=== PATIENT | male | born 1980 | race Caucasian/White ===

== ENCOUNTER 2017-07-08 11:35 | Emergency (ER) | payer MEDICAID ==
[2017-07-08 11:36] VITALS: BMI 25.0
[2017-07-08 11:52] VITALS: RESP 18; O2SAT 100
[2017-07-08] MEDS ORDERED: Sodium Chloride 0.9% 1,000 ML IV ONE (12:12)
--- NOTE | 2017-07-08 12:40 | C.PDOC ---
History Of Present Illness 36 year old male with PMHx of chronic lower back pain, under pain management now , BIBA for evaluation if syncopal episode, while he was in court early today. Pt reports, was standing for some time, felt dizzy and fell on the floor. Patient admits to spent the night prior in [facility] . Patient reports, currently taking oxycodone 30 mg daily for pain and is requesting pain medications now, last dose was yesterday. Otherwise, Patient denies head injury, denies worse headache of life, visual changes, focal deficits, N/V, neck pain, CP, SOB, dyspnea, diaphoresis, palpitations, abdominal pain, back pain, incontinence, denies weakness, sensory or vascular deficits to B/L UEs and LEs. At time of evaluation patient is AOX3, ambulatory in ED with stable gait. Time Seen by Provider: 07/08/17 11:47 Chief Complaint (Nursing): Syncope History Per: Patient, EMS History/Exam Limitations: no limitations Onset/Duration Of Symptoms: Hrs Current Symptoms Are (Timing): Gone Number Of Syncopal Episodes: 1 Activity At Onset Of Symptoms: Standing Associated Symptoms Preceding Syncopal Episode: Other (Dizziness) Seizure Or Post-ictal Symptoms: None Possible Causative Factor(s): Lightheaded W/Standing Recent travel outside of the [place]: No Additional History Per: Patient, EMS Past Medical History Reviewed: Historical Data, Nursing Documentation, Vital Signs Vital Signs: Last Vital Signs Temp 97.3 F L 07/08/17 14:16 Pulse 86 07/08/17 14:16 Resp 18 07/08/17 14:16 BP 163/95 H 07/08/17 14:16 Pulse Ox 100 07/08/17 14:41 - Medical History PMH: Asthma, Back Problems Denies: Chronic Kidney Disease Surgical History: Back Surgery Family History: States: Unknown Family Hx - Social History Hx Tobacco Use: No Hx Alcohol Use: No Hx Substance Use: Yes (marijuana) - Immunization History Hx Tetanus Toxoid Vaccination: No Hx Influenza Vaccination: No Hx Pneumococcal Vaccination: No Review Of Systems Constitutional: Negative for: Fever, Chills Eyes: Negative for: Vision Change Cardiovascular: Negative for: Chest Pain, Palpitations Respiratory: Negative for: Cough, Shortness of Breath Gastrointestinal: Negative for: Nausea, Vomiting, Abdominal Pain Genitourinary: Negative for: Incontinence Musculoskeletal: Negative for: Neck Pain, Back Pain Skin: Negative for: Rash Neurological: Positive for: Dizziness. Negative for: Weakness, Numbness, Headache Physical Exam - Physical Exam Appears: Well, Non-toxic, No Acute Distress Skin: Normal Color, Warm, Dry, No Rash Head: Atraumatic, Normacephalic, No Tenderness, No Swelling Eye(s): bilateral: PERRL Ear(s): Bilateral: Normal Nose: No Flaring, No Discharge, No Deformity Oral Mucosa: Moist, No Drooling Throat: No Erythema, No Exudate, No Drooling Neck: Normal ROM, Trachea Midline, No Midline Cervical Tenderness, No Paracervical Tenderness, No Step Off Deformity, Supple Cardiovascular: Rhythm Regular, No Murmur Respiratory: No Decreased Breath Sounds, No Accessory Muscle Use, No Rales, No Rhonchi, No Stridor, No Wheezing Gastrointestinal/Abdominal: Soft, No Tenderness, No Organomegaly, No Guarding, No Rebound Back: No Vertebral Tenderness Extremity: Normal ROM, No Deformity, No Swelling Neurological/Psych: Oriented x3, Normal Speech, Normal Cognition, Normal Motor, Normal Sensation, Normal Reflexes Gait: Steady ED Course And Treatment - Laboratory Results Result Diagrams: 07/08/17 12:34 07/08/17 12:34 ECG: Interpreted By Me, Viewed By Wv ECG Rhythm: Sinus Rhythm ECG Interpretation: Normal, No Acute Changes Interpretation Of ECG: NSR at 79 BPM, normal axis, no acute T or ST changes. Rate From EC O2 Sat by Pulse Oximetry: 100 (On RA) Pulse Ox Interpretation: Normal - Radiology CXR: Interpreted by Me, Viewed By Me CXR Interpretation: Yes: No Acute Disease. No: Infiltrates Progress Note: Plan: -EKG, CXR ordered. -Blood work, UA ordered. -IV fluids given. On re-eval, pt is afebrile, hemodynamicaly stable. Ambulatory in ED with stable gait. Pt request pain medication and discharge now. Pt denies CP, SOB, palpitation. PulseOx 100% RA. ENT: no acute findings. Neck: Supple, (-) midline tenderness, (-) JVD, (-) carotid bruits. CVS: (+)S1S2, reg. Lungs: CTA B /L, BS equal B/L. Abd: benign. Neurologicaly intact. EKG, CXR review and appears normal. Urine sample- pt refused. Blood work review including Troponin - appears normal. Pt has clinical findings c/w syncope?. Pt advised on course of ds. ref. to F/u with PMD, card in 2-3 days for re-eval. return to ED if any worsening or new changes. Disposition Counseled Patient/Family Regarding: Diagnosis - Disposition Referrals: [facility] [Outside] Disposition: HOME/ ROUTINE Disposition Time: 14:00 Condition: STABLE Additional Instructions: FOLLOW UP WITH PMD AND CARDIOLOGY IN 2-3 DAYS FOR RE-EVALUATION AND FURTHER TREATMENT RETURN IF ANY WORSENING OR NEW CHANGES. Instructions: Syncope (ED) Forms: [employer] (Belarusian) - Clinical Impression Clinical Impression: Syncope - PA / CATTLE TESTER / Resident Statement MD/DO has reviewed & agrees with the documentation as recorded. - Scribe Statement The provider has reviewed the documentation as recorded by the Scribe Ebenezer Carias All medical record entries made by the Scribe were at my direction and personally dictated by me. I have reviewed the chart and agree that the record accurately reflects my personal performance of the history, physical exam, medical decision making, and the department course for this patient. I have also personally directed, reviewed, and agree with the discharge instructions and disposition.
[2017-07-08 12:43] LABS: BASO % 0.4 % (0.0-2.0); EOS % 0.2 % (0.0-4.0); HEMATOCRIT 50.5 % (35.0-51.0); LYMPH # 1.4 K/uL (1.0-4.3); LYMPH % 17.2 % (20.0-40.0); MEAN CORPUSCULAR HEMOGLOBIN 30.4 pg (27.0-31.0); MEAN CORPUSCULAR HGB CONC 33.8 g/dL (33.0-37.0); MEAN PLATELET VOLUME 9.2 fL (7.2-11.7); MONO # 0.6 K/uL (0.0-0.8); MONO % 7.2 % (0.0-10.0); NRBC % 0.2 % (0.0-2.0); RED CELL DISTRIBUTION WIDTH 12.7 % (11.5-14.5); WHITE BLOOD COUNT 8.4 K/uL (4.8-10.8)
[2017-07-08 13:02] LABS: ALB/GLOB RATIO 1.6 (1.0-2.1); ALCOHOL SERUM < 10 mg/dl (0-10); ALKALINE PHOSPHATASE 70 U/L (38-126); ALT/SGPT 56 U/L (21-72); AST/SGOT 34 U/L (17-59); BILIRUBIN,TOTAL 1.2 mg/dL (0.2-1.3); BLOOD UREA NITROGEN 14 mg/dL (9-20); CALCIUM 8.8 mg/dl (8.6-10.4); CARBON DIOXIDE 23 mmol/L (22-30); CHLORIDE 101 mmol/L (98-107); GFR AFRICAN-AMERICAN > 60; GLUCOSE,RANDOM 73 mg/dL (75-110); POTASSIUM 3.8 mmol/L (3.6-5.2); SODIUM 136 mmol/L (132-148); TOTAL PROTEIN 7.6 g/dL (6.3-8.3)
--- NOTE | 2017-07-08 13:57 | RAD ---
HISTORY: AMS COMPARISON: Comparison chest dated 09/17/2016. TECHNIQUE: Chest PA and lateral FINDINGS: LUNGS: No active pulmonary disease. PLEURA: No significant pleural effusion identified. No pneumothorax apparent. CARDIOVASCULAR: Normal. OSSEOUS STRUCTURES: No significant abnormalities. VISUALIZED UPPER ABDOMEN: Normal. OTHER FINDINGS: None. IMPRESSION: No acute infiltrates.
[2017-07-08 14:17] VITALS: BP 163/95; PULSE 86; TEMP 97.3
== END 2017-07-08 14:36 | disposition home or self-care (01) ==
LOC: C.ER 11:35
DX: R55 Syncope and collapse (principal)
CPT/HCPCS: 71020; 80053; 80320; 82948; 84484; 85025; 85610; 85730; 96360; 99285; J7040

== ENCOUNTER 2018-01-10 06:56 | Emergency (ER) | payer SELFPAY ==
[2018-01-10 06:56] VITALS: BMI 21.5
[2018-01-10 07:04] VITALS: RESP 18; TEMP 98.3
--- NOTE | 2018-01-10 07:32 | C.PDOC ---
History Of Present Illness 37-year-old male, presents to the emergency department with complaints of chronic low back pain. Patient states he was recently released from correction, with an ankle monitor. States he has been experiencing pain in his back, since he had surgery couple of years ago, he was taking Oxycodone and Percocet, but siche he got out of correction he has no pain medications and didn't see interventional pain physician yet. He denies any numbness/weakness, changes in sensation , bowel/bladder incontinence, or any other associated symptoms. No other complaints at this time. Time Seen by Provider: 01/10/18 07:16 Chief Complaint (Nursing): Back Pain History Per: Patient History/Exam Limitations: no limitations Current Symptoms Are (Timing): Still Present Past Medical History Reviewed: Historical Data, Nursing Documentation, Vital Signs Vital Signs: Last Vital Signs Temp 98.3 F 01/10/18 07:01 Pulse 75 01/10/18 08:17 Resp 18 01/10/18 08:17 BP 121/74 01/10/18 08:17 Pulse Ox 97 01/10/18 12:26 - Medical History PMH: Asthma, Back Problems (chronic ) Surgical History: Back Surgery Family History: States: No Known Family Hx - Social History Hx Tobacco Use: No Hx Alcohol Use: No Hx Substance Use: Yes (marijuana) - Immunization History Hx Tetanus Toxoid Vaccination: No Hx Influenza Vaccination: No Hx Pneumococcal Vaccination: No Review Of Systems Constitutional: Negative for: Fever, Chills Respiratory: Negative for: Shortness of Breath Gastrointestinal: Negative for: Nausea, Vomiting Musculoskeletal: Positive for: Back Pain Neurological: Negative for: Weakness, Numbness Physical Exam - Physical Exam Appears: Non-toxic, No Acute Distress Skin: Normal Color, Warm, Dry, No Rash Head: Normacephalic Eye(s): bilateral: Normal Inspection Nose: Normal Oral Mucosa: Moist Lips: Normal Appearing Neck: Normal ROM Cardiovascular: Rhythm Regular, No Murmur Respiratory: Normal Breath Sounds, No Accessory Muscle Use Back: Paraspinal Tenderness (diffuse, (+)post-op surgical scar, well healing.) Extremity: Normal ROM, No Deformity, No Swelling Neurological/Psych: Oriented x3, Normal Speech ED Course And Treatment O2 Sat by Pulse Oximetry: 97 (RA) Pulse Ox Interpretation: Normal Medical Decision Making Medical Decision Making: Plan: * Percocet * Reassess and Disposition Progress: Upon re-evaluation, patient is feeling better and pain has improved. He will be discharged for outpatient f/u with PMD and measurement specialist. All questions answered. Upon discharge, patient is requesting a letter to court, that says he is unable to appear in court for his chronic back pain. I instructed patient to f/u with his PMD/clinic in order to obtain the letter. Pt instructed to return if any new or worsening symptoms occur. Disposition - Disposition Referrals: Rubén Logan MD [Staff Provider] - Dash Rodriguez MD [Staff Provider] - Disposition: HOME/ ROUTINE Disposition Time: 08:00 Condition: STABLE Additional Instructions: Follow up with interventional pain physician within 1-2 days. Return to ED if feel worse. Prescriptions: oxyCODONE/Acetaminophen [Percocet 5/325 mg Tab] 1 tab PO QID PRN #10 tab PRN Reason: Pain Instructions: Low Back Pain in Adults Forms: [employer] (Pakistani) - Clinical Impression Clinical Impression: Chronic low back pain - Scribe Statement The provider has reviewed the documentation as recorded by the Scribe (Ericka Hernadez) All medical record entries made by the Scribe were at my direction and personally dictated by me. I have reviewed the chart and agree that the record accurately reflects my personal performance of the history, physical exam, medical decision making, and the department course for this patient. I have also personally directed, reviewed, and agree with the discharge instructions and disposition.
[2018-01-10] MEDS ORDERED: Oxycodone/Acetaminophen 5/325 mg Tab PO STA (07:33)
[2018-01-10] MEDS ORDERED: Oxycodone/Acetaminophen 5/325 mg Tab ONE (07:43)
[2018-01-10 08:18] VITALS: BP 121/74; PULSE 75
[2018-01-10 09:36] VITALS: O2SAT 97
== END 2018-01-10 08:34 | disposition home or self-care (01) ==
LOC: SUPCPDRO 06:56 → C.ER 06:56
DX: G89.29 Other chronic pain (principal); M54.5 Low back pain